=== PATIENT | male | born 1980 | race Caucasian/White ===

== ENCOUNTER 2016-10-25 09:58 | Day surgery (SDC) | payer MEDICARE, OTHER ==
[~2016-10-25 09:58] MED LIST: LACTATED RINGERS 1,000 ML IV SCH
[2016-10-25] MEDS ORDERED: IV START KIT ONE (10:02)
[2016-10-25] MEDS ORDERED: LACTATED RINGERS 1,000 ML ONE (10:02)
[2016-10-25] MEDS ORDERED: PROPOFOL 20 ML IV ONE ×2 (10:32→11:12)
[2016-10-25] MEDS ORDERED: FENTANYL 5 ML ONE (10:32)
[2016-10-25] MEDS ORDERED: MIDAZOLAM HCL 1 MG/ML 2ML VIAL ONE (10:32)
[2016-10-25 15:26] LABS: HELICOBACTER PYLORII DETECTION NEGATIVE (NEGATIVE)
--- NOTE | 2016-10-27 14:02 | SURGPATH ---
[facility] [address] [place] [id number] Patient Name: MAURO DELGADO MR#: [id number] : 1980 Gender: M Specimen #: [id number] Collected: 10/25/2016 Received: 10/26/2016 Reported: 10/27/2016 Submitting Phys: LATOSHA GONGORA Copy To Phys: [facility] Clinical History / Pre-Operative Diagnosis: RUQ PAIN WITH BLOATING AND RLQ PAIN WITH DIARRHEA; RECTAL BLEEDING; RULE OUT GIARDIA, CELIAC SPRUE, GASTRITIS, ILEITIS AND COLITIS Specimen Source / Surgical Procedure Performed: #1-DUODENAL BIOPSY; #2-ANTRAL BIOPSY; #3-TERMINAL ILEUM BIOPSY; #4-CECAL BIOPSY; #5-SIGMOID BIOPSY AT 30 CM Interpretation: 1. DUODENUM, BIOPSY: - SMALL BOWEL MUCOSA SHOWING NO DIAGNOSTIC ABNORMALITIES. - NO EVIDENCE OF SIGNIFICANT INFLAMMATION, VILLOUS BLUNTING, OR MALIGNANCY. 2. GASTRIC ANTRUM, BIOPSY: - GASTRIC MUCOSA SHOWING NO DIAGNOSTIC ABNORMALITIES. - NO MICROORGANISMS IDENTIFIED WITH ROUTINE STAINING. - NO EVIDENCE OF SIGNIFICANT INFLAMMATION, INTESTINAL METAPLASIA, OR MALIGNANCY. 3. TERMINAL ILEUM, BIOPSY: - SMALL BOWEL MUCOSA SHOWING NO DIAGNOSTIC ABNORMALITIES. - NO EVIDENCE OF SIGNIFICANT INFLAMMATION, VILLOUS BLUNTING, OR MALIGNANCY. 4. CECUM, BIOPSY: - COLONIC MUCOSA SHOWING NO DIAGNOSTIC ABNORMALITIES. - NO EVIDENCE OF SIGNIFICANT INFLAMMATION OR MALIGNANCY. 5. COLON, SIGMOID 30 CM, BIOPSY: - COLONIC MUCOSA SHOWING NO DIAGNOSTIC ABNORMALITIES. - NO EVIDENCE OF SIGNIFICANT INFLAMMATION OR MALIGNANCY. Electronically Signed Out Ubaldo Rodriguez M.D., Ph.D. Gross Description: #1 The specimen is received in a formalin filled container labeled with the patient's name and "duodenal biopsy". Two fowler biopsies are 0.4 and 0.5 cm. Totally embedded in cassette #1. #2 The specimen is received in a formalin filled container labeled with the patient's name and "antral biopsy". Two fowler biopsies are 0.3 and 0.5 cm. Totally embedded in cassette #2. #3 The specimen is received in a formalin filled container labeled with the patient's name and "terminal ileum biopsy". A single fowler biopsy is 0.3 cm. Totally embedded in cassette #3. #4 The specimen is received in a formalin filled container labeled with the patient's name and "cecal biopsy". Two fowler biopsies are 0.3 and 0.4 cm. Totally embedded in cassette #4. #5 The specimen is received in a formalin filled container labeled with the patient's name and "sigmoid biopsy at 30 cm". Two fowler biopsies are each 0.4 cm. Totally embedded in cassette #5. Patrick Oro Microscopic Description: 1. Examination of multiple levels from the duodenum biopsy shows two fragments of histologically unremarkable small bowel mucosa. The villous architecture is intact without evidence of blunting. There is no evidence of significant inflammation or malignancy. 2. Examination of multiple levels from the gastric antrum biopsy shows two fragments of histologically unremarkable gastric mucosa. The lamina propria is not expanded. No microorganisms are seen with routine staining. There is no evidence of significant inflammation, intestinal metaplasia, or malignancy. 3. Examination of multiple levels from the terminal ileum biopsy shows a single fragment of histologically unremarkable small bowel mucosa. The villous architecture is intact without evidence of blunting. There is no evidence of significant inflammation or malignancy. 4. Examination of multiple levels from the cecum biopsy shows two fragments of histologically unremarkable colonic mucosa. The architecture is intact without evidence of distortion. There is no evidence of significant inflammation or malignancy. 5. Examination of multiple levels from the sigmoid colon biopsy at 30 cm shows two fragments of histologically unremarkable colonic mucosa. The architecture is intact without evidence of distortion. There is no evidence of significant inflammation or malignancy. 1: [id number] 2: 24395 3: 29253 4: 09766 5: [id number] R10.11 R10.31 R19.7
== END 2016-10-25 12:06 | disposition home or self-care (01) ==
LOC: SDC 09:58
PROVIDERS: ATTEND Internal Medicine Gastroenterology
PROC: 0DBN8ZX Excision of Sigmoid Colon, Via Natural or Artificial Opening Endoscopic, Diagnostic (ICD-10-PCS; principal; 2016-10-25)
PROC: 0DBH8ZX Excision of Cecum, Via Natural or Artificial Opening Endoscopic, Diagnostic (ICD-10-PCS; principal; 2016-10-25)
PROC: 0DBB8ZX Excision of Ileum, Via Natural or Artificial Opening Endoscopic, Diagnostic (ICD-10-PCS; principal; 2016-10-25)
PROC: 0DB98ZX Excision of Duodenum, Via Natural or Artificial Opening Endoscopic, Diagnostic (ICD-10-PCS; principal; 2016-10-25)
PROC: 0DB68ZX Excision of Stomach, Via Natural or Artificial Opening Endoscopic, Diagnostic (ICD-10-PCS; principal; 2016-10-25)
DX: K29.70 Gastritis, unspecified, without bleeding (principal); K29.80 Duodenitis without bleeding; K59.8 Other specified functional intestinal disorders; R19.7 Diarrhea, unspecified; K62.5 Hemorrhage of anus and rectum; F32.9 Major depressive disorder, single episode, unspecified